=== PATIENT | female | born 1995 | race American Indian/Alaskan Native ===

== ENCOUNTER 2019-09-07 20:06 | Emergency (ER) | payer SELFPAY ==
[2019-09-07 21:17] LABS: Bilirubin,Urine NEG (Negative); Blood,Urine SM (Negative); Color,Urine Yellow (Yellow); HCG Qualitative,Urine Positive (Negative); Mucus,Urine 1+ /HPF; Protein,Urine <15 mg/dL mg/dL (Negative)
--- NOTE | 2019-09-08 00:01 | Emergency Department Report ---
ED General Adult HPI - General Chief complaint: Headache Stated complaint: UTI, HEADACHES FOR TWO WEEKS Time Seen by Provider: 09/07/19 22:42 Source: patient Mode of arrival: Ambulatory Limitations: No Limitations - History of Present Illness Initial comments: Patient is a 24-year-old female presents the emergency room with complaints of vaginal discharge that began a few days ago. pt has associated frequent urination. she denies any vaginal itching, vaginal burning, dysuria. Patient states that she has also had a headache for 2 weeks and has been taking Excedrin and Goody powder. She has also had a toothache for 2 days. she denies any vomiting, diarrhea, fever, vision changes, numbness and numbness, weakness, facial edema, chills. She states her last mental cycle was August 07. She denies any past medical history or allergies medications. she states that she recently found out she was by urine preg test and states that she has lower abdominal cramping. she denies any vaginal bleeding. has not seen an PSYCHIATRIC TECHNICIAN ASSISTANT - Related Data Previous Rx's Medication Instructions Recorded Last Taken Type Acetaminophen [Acetaminophen 8 650 mg PO Q8HR PRN #14 tablet.er 09/08/19 Unknown Rx Hour] metroNIDAZOLE [Flagyl] 500 mg PO BID 7 Days #14 tab 09/08/19 Unknown Rx Allergies Allergy/AdvReac Type Severity Reaction Status Date / Time No Known Allergies Allergy Unverified 09/07/19 20:48 ED Review of Systems ROS: Stated complaint: UTI, HEADACHES FOR TWO WEEKS Other details as noted in HPI Comment: All other systems reviewed and negative ED Past Medical Hx - Past Medical History Previous Medical History?: Yes Hx Headaches / Migraines: Yes Additional medical history: Scoliosis - Surgical History Past Surgical History?: No - Social History Smoking Status: Never Smoker Substance Use Type: None - Medications Home Medications: Home Medications Medication Instructions Recorded Confirmed Last Taken Type Acetaminophen [Acetaminophen 8 650 mg PO Q8HR PRN #14 tablet.er 09/08/19 Unknown Rx Hour] metroNIDAZOLE [Flagyl] 500 mg PO BID 7 Days #14 tab 09/08/19 Unknown Rx ED Physical Exam - General Limitations: No Limitations General appearance: alert, in no apparent distress - Head Head exam: Present: atraumatic, normocephalic - Eye Eye exam: Present: normal appearance - ENT ENT exam: Present: normal orophraynx, mucous membranes moist, other (no signs of dental abscess, no signs of facial cellulitis) - Respiratory Respiratory exam: Present: normal lung sounds bilaterally. Absent: respiratory distress, wheezes, rales, rhonchi, stridor, chest wall tenderness, accessory muscle use, decreased breath sounds, prolonged expiratory - Cardiovascular Cardiovascular Exam: Present: regular rate, normal rhythm, normal heart sounds. Absent: systolic murmur, diastolic murmur, rubs, gallop - GI/Abdominal GI/Abdominal exam: Present: soft, normal bowel sounds. Absent: distended, tenderness, guarding, rebound, rigid - External exam: Present: normal external exam. Absent: erythema, swelling, lesions, lacerations, ecchymosis, bleeding Speculum exam: Present: vaginal discharge (white), cervical discharge (white), other (eyedotter: janki, RN. cervical os is closed). Absent: erythema, vaginal bleeding, foreign body, tissue, laceration Bi-manual exam: Present: normal bi-manual exam. Absent: cervical motion tendernes, adnexal tenderness, adnexal mass - Neurological Exam Neurological exam: Present: alert, oriented X3, CN II-XII intact, normal gait. Absent: motor sensory deficit - Psychiatric Psychiatric exam: Present: normal affect, normal mood - Skin Skin exam: Present: warm, dry, intact ED Course Vital Signs 09/07/19 09/08/19 09/08/19 20:45 02:13 02:14 Temperature 98.5 F Pulse Rate 78 72 Respiratory 14 16 16 Rate Blood Pressure 132/84 Blood Pressure 127/84 [Left] O2 Sat by Pulse 100 Oximetry ED Medical Decision Making - Radiology Data Radiology results: report reviewed US OB transvaginal, US OB <= 14 weeks fetus INDICATION / CLINICAL INFORMATION: , abd pain. COMPARISON: None available. FINDINGS: Uterus measures 9.1 cm. A 1 cm gestational sac is identified with a yolk sac but no pole. The ovaries are normal. No free fluid collections are seen in the pelvis. IMPRESSION: 1. 5 week 5 day intrauterine gestation. Signer Name: Akhil Owen MD Signed: 09/08/2019 1:24 AM Workstation Name: [id number] Transcribed By: GA Dictated By: Akhil Owen MD Electronically Authenticated By: Akhil Owen MD Signed Date/Time: 09/08/19 0124 - Medical Decision Making Patient is a 24-year-old female presents the emergency room with complaints of vaginal discharge that began a few days ago. pt has associated frequent urination. she denies any vaginal itching, vaginal burning, dysuria. Patient states that she has also had a headache for 2 weeks and has been taking Excedrin and Goody powder. She has also had a toothache for 2 days. she denies any vomiting, diarrhea, fever, vision changes, numbness and numbness, weakness, facial edema, chills. She states her last mental cycle was August 07. She denies any past medical history or allergies medications. she states that she recently found out she was by urine preg test and states that she has lower abdominal cramping. she denies any vaginal bleeding. has not seen an PSYCHIATRIC TECHNICIAN ASSISTANT. VSS. no abd tenderness on exam, no signs of dental abscess/facial cellulitis, no focal neuro deficits. pt given tylenol and CARRILLO improved. urine was positive. UA without evidence of UTI. hcg quant is 3498. wet prep shows trichomonas and BV. G/C swab sent. US shows: 1. 5 week 5 day intrauterine gestation. pt given prescription for tylenol and flagyl. discussed with pt that only tylenol is safe during first trimester. advised pt to please take medication as prescribed. Please increase your water intake and begin to take a vitamin [id number]. please follow-up with an PSYCHIATRIC TECHNICIAN ASSISTANT and a dentist in the next 2-3 days. 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 please be seen by the health department or PSYCHIATRIC TECHNICIAN ASSISTANT for full STD panel. abstain from sexual intercourse for 10 days. have partner tested and treated. return to the emergency room for any new or worsening symptoms. - Differential Diagnosis UTI, STD, yeast, BV, vaginitis Critical care attestation.: If time is entered above; I have spent that time in minutes in the direct care of this critically ill patient, excluding procedure time. ED Disposition Clinical Impression: Bacterial vaginosis, Trichomonas vaginalis infection, Toothache Qualifiers: Weeks of gestation: less than 8 weeks Qualified Code(s): Z3A.01 - Less than 8 weeks gestation of Headache Qualifiers: Headache type: unspecified Headache chronicity pattern: acute headache Intractability: not intractable Qualified Code(s): R51 - Headache Disposition: DC-01 TO HOME OR SELFCARE Is pt being admited?: No Does the pt Need Aspirin: No Condition: Stable Instructions: (ED), Bacterial Vaginosis (ED), Safe Sex (ED), Trichomoniasis (ED), Acute Headache (ED), Toothache (ED) Additional Instructions: Please take medication as prescribed. Please increase your water intake and begin to take a vitamin [id number]. please follow-up with an PSYCHIATRIC TECHNICIAN ASSISTANT and a dentist in the next 2-3 days. 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 please be seen by the health department or PSYCHIATRIC TECHNICIAN ASSISTANT for full STD panel. abstain from sexual intercourse for 10 days. have partner tested and treated. return to the emergency room for any new or worsening symptoms. Prescriptions: Acetaminophen [Acetaminophen 8 Hour] 650 mg PO Q8HR PRN #14 tablet.er PRN Reason: pain metroNIDAZOLE [Flagyl] 500 mg PO BID 7 Days #14 tab Referrals: DIONICIO CHISHOLM MD [Staff Physician] - 2-3 Days [facility] [Outside] - 2-3 Days Forms: STI Treatment and Prevention Time of Disposition: 01:32 Print Language: ITALIAN
[2019-09-08] MEDS: TYLENOL PO ONE (00:25)
--- NOTE | 2019-09-08 01:29 | Ultrasound Report ---
US OB transvaginal, US OB <= 14 weeks fetus INDICATION / CLINICAL INFORMATION: , abd pain. COMPARISON: None available. FINDINGS: Uterus measures 9.1 cm. A 1 cm gestational sac is identified with a yolk sac but no pole. The ovaries are normal. No free fluid collections are seen in the pelvis. IMPRESSION: 1. 5 week 5 day intrauterine gestation. Signer Name: Akhil Owen MD Signed: 09/08/2019 1:24 AM Workstation Name: [facility]
[2019-09-08 02:15] VITALS: BP 127/84
== END 2019-09-08 02:15 | disposition home or self-care (01) ==
LOC: ED 20:06
DX: O98.311 Other infections with a predominantly sexual mode of transmission complicating pregnancy, first trimester (principal); A59.01 Trichomonal vulvovaginitis; O99.351 Diseases of the nervous system complicating pregnancy, first trimester; G43.909 Migraine, unspecified, not intractable, without status migrainosus; Z3A.08 8 weeks gestation of pregnancy
CPT/HCPCS: 36415; 76801; 76817; 81001; 81025; 84702; 87210; 87591

== ENCOUNTER 2019-10-05 08:49 | Emergency (ER) | payer MEDICAID, OTHER ==
[2019-10-05 10:34] LABS: Basophils % (Auto) 0.3 % (0.0-1.8); Eosinophils # (Auto) 0.1 K/mm3 (0.0-0.4); Eosinophils % (Auto) 1.3 % (0.0-4.3); Hematocrit 33.6 % (30.3-42.9); Hemoglobin 11.3 gm/dl (10.1-14.3); Lymphocytes # (Auto) 1.1 K/mm3 (1.2-5.4); Lymphocytes % (Auto) 18.2 % (13.4-35.0); Mean Corpuscular HGB Conc 34 % (30-34); Mean Corpuscular Volume 88 fl (79-97); Monocytes # (Auto) 0.4 K/mm3 (0.0-0.8); Monocytes % (Auto) 7.2 % (0.0-7.3); Platelet Count 320 K/mm3 (140-440); Red Blood Count 3.82 M/mm3 (3.65-5.03); Red Cell Distribution Width 13.5 % (13.2-15.2)
[2019-10-05 10:44] LABS: Bacteria,Urine 1+ /HPF (Negative); Bilirubin,Urine NEG (Negative); Blood,Urine MOD (Negative); Color,Urine Yellow (Yellow); Hyaline Casts,Urine 1 /LPF; Mucus,Urine 1+ /HPF; Protein,Urine <15 mg/dL mg/dL (Negative); Urobilinogen,Urine < 2.0 mg/dL (<2.0)
--- NOTE | 2019-10-05 10:46 | Emergency Department Report ---
ED Female HPI - General Chief complaint: Vaginal Bleeding Stated complaint: 8WKS /BLEEDING/COUGHING Time Seen by Provider: 10/05/19 09:21 Source: patient Mode of arrival: Ambulatory Limitations: No Limitations - History of Present Illness Initial comments: This is a 24-year-old 0-2 who presents at approximately 8 weeks gestation complaining of vaginal spotting that started worse in the past 4 days. Patient states her last menstrual period is 08/07/2019 which she is not sure. Patient states that she's been to Aide x 2 for test and follow-up. Patient has not been to ASSOCIATE ART DIRECTOR for this . Patient stated that initially last when she went to the bathroom and wiped she saw some dark red spotting. Patient states that today when she went to wipe she is brighter red,. Patient is not actively having any vaginal bleeding at the moment. She admits lower pelvic intermittent cramping, vomiting and nausea. MD Complaint: vaginal bleeding - Related Data Previous Rx's Medication Instructions Recorded Last Taken Type Acetaminophen [Acetaminophen 8 650 mg PO Q8HR PRN #14 tablet.er 09/08/19 Unknown Rx Hour] metroNIDAZOLE [Flagyl] 500 mg PO BID 7 Days #14 tab 09/08/19 Unknown Rx Doxylamine Succinate/Vit B6 2 each PO QHS #40 tablet. 10/05/19 Unknown Rx [Luigi Enamorado 10-10 mg Tablet] Allergies Allergy/AdvReac Type Severity Reaction Status Date / Time No Known Allergies Allergy Unverified 09/07/19 20:48 ED Review of Systems ROS: Stated complaint: 8WKS /BLEEDING/COUGHING Other details as noted in HPI Comment: All other systems reviewed and negative ED Past Medical Hx - Past Medical History Hx Headaches / Migraines: Yes Additional medical history: Scoliosis - Surgical History Past Surgical History?: No - Social History Smoking Status: Never Smoker Substance Use Type: None - Medications Home Medications: Home Medications Medication Instructions Recorded Confirmed Last Taken Type Acetaminophen [Acetaminophen 8 650 mg PO Q8HR PRN #14 tablet.er 09/08/19 Unknown Rx Hour] metroNIDAZOLE [Flagyl] 500 mg PO BID 7 Days #14 tab 09/08/19 Unknown Rx Doxylamine Succinate/Vit B6 2 each PO QHS #40 tablet. 10/05/19 Unknown Rx Harjeet Enamorado 10-10 mg Tablet] ED Physical Exam - General Limitations: No Limitations General appearance: alert, in no apparent distress - Head Head exam: Present: atraumatic, normocephalic - Eye Eye exam: Present: normal appearance - ENT ENT exam: Present: mucous membranes moist - Neck Neck exam: Present: normal inspection - Respiratory Respiratory exam: Present: normal lung sounds bilaterally. Absent: respiratory distress - Cardiovascular Cardiovascular Exam: Present: regular rate, normal rhythm. Absent: systolic murmur, diastolic murmur, rubs, gallop - GI/Abdominal GI/Abdominal exam: Present: soft, normal bowel sounds - Extremities Exam Extremities exam: Present: normal inspection - Back Exam Back exam: Present: normal inspection - Neurological Exam Neurological exam: Present: alert, oriented X3 - Psychiatric Psychiatric exam: Present: normal affect, normal mood - Skin Skin exam: Present: warm, dry, intact, normal color. Absent: rash ED Course Vital Signs 10/05/19 08:54 Temperature 97.9 F Pulse Rate 86 Respiratory 15 Rate Blood Pressure 117/79 O2 Sat by Pulse 100 Oximetry ED Medical Decision Making - Lab Data Result diagrams: 10/05/19 10:16 - Radiology Data Radiology results: report reviewed, image reviewed ULTRASOUND OB LESS THAN 14 WEEKS FETUS ULTRASOUND OB TRANSVAGINAL HISTORY: Vaginal bleeding, pelvic pain during COMPARISON: 09/07/2019 TECHNIQUE: Routine transabdominal OB ultrasound performed. FINDINGS: Uterus: The uterus is mildly enlarged measuring 12.3 x 7.3 x 11.8 cm. Gestational Sac: Well-defined oval shape and intrauterine in location. Yolk Sac: Normal in appearance. Fetus/Embryo: [place]-rump length of 2.6 cm, corresponding to an estimated gestational age of 9 weeks 3 days. Embryonic/ anatomy is too small for evaluation. Embryonic/ cardiac activity: 182bpm Placenta: Too small for evaluation. Amniotic fluid volume: Subjectively appropriate for gestational age. Ovaries: The right ovary is normal in size and appearance with normal blood flow, measuring 3.7 x 2.2 x 3.9 cm. The left ovary is normal in size and appearance with normal blood flow, measuring 3.5 x 2.5 x 2.7 cm. Hypoechoic space-occupying mass in the right ovary with peripheral vascularity is most likely the corpus luteum. Additional findings: None. IMPRESSION Viable, single intrauterine as described. No acute abnormality is detected. Signer Name: Macario Galvan Jr, MD Signed: 10/05/2019 10:55 AM Workstation Name: [id number] Transcribed By: TTR Dictated By: MACARIO GALVAN JR, MD Electronically Authenticated By: MACARIO GALVAN JR, MD Signed Date/Time: 10/05/19 1055 - Medical Decision Making 24-year-old female presents to ED with vaginal spotting in ED course: Pt received ultra sound, CBC, urinalysis, test and quantitative ED All labs within normal limits, quantitative elevated matching gestation age Ultrasound shows single gestation at 9 weeks with 182 bpm respectively. See reported above Vital signs normalized patient is in no acute distress. I discussed with the patient to follow-up with her ASSOCIATE ART DIRECTOR. I discussed all labs and ultrasound findings with the patient. I discussed with the patient that he if bleeding worsens or new symptoms develop to return to ED immediately Critical care attestation.: If time is entered above; I have spent that time in minutes in the direct care of this critically ill patient, excluding procedure time. ED Disposition Clinical Impression: Vaginal bleeding during Disposition: DC-01 TO HOME OR SELFCARE Is pt being admited?: No Does the pt Need Aspirin: No Condition: Stable Instructions: Threatened Miscarriage (ED), (ED) Additional Instructions: Make sure to follow up with the ASSOCIATE ART DIRECTOR as discussed. Take all your medications as you've been prescribed. If you have any worsening symptoms or develop new symptoms please return to ED immediately. Prescriptions: Doxylamine Succinate/Vit B6 [Luigi Enamorado 10-10 mg Tablet] 2 each PO QHS #40 tablet. Referrals: [facility] [Provider Group] - 3-5 Days [facility] [Provider Group] - 3-5 Days Forms: Work/School Release Form(ED) Time of Disposition: 11:29
--- NOTE | 2019-10-05 10:59 | Ultrasound Report ---
ULTRASOUND OB LESS THAN 14 WEEKS FETUS ULTRASOUND OB TRANSVAGINAL HISTORY: Vaginal bleeding, pelvic pain during COMPARISON: 09/07/2019 TECHNIQUE: Routine transabdominal OB ultrasound performed. FINDINGS: Uterus: The uterus is mildly enlarged measuring 12.3 x 7.3 x 11.8 cm. Gestational Sac: Well-defined oval shape and intrauterine in location. Yolk Sac: Normal in appearance. Fetus/Embryo: [place]-rump length of 2.6 cm, corresponding to an estimated gestational age of 9 weeks 3 days. Embryonic/ anatomy is too small for evaluation. Embryonic/ cardiac activity: 182bpm Placenta: Too small for evaluation. Amniotic fluid volume: Subjectively appropriate for gestational age. Ovaries: The right ovary is normal in size and appearance with normal blood flow, measuring 3.7 x 2. 2 x 3.9 cm. The left ovary is normal in size and appearance with normal blood flow, measuring 3.5 x 2.5 x 2.7 cm. Hypoechoic space-occupying mass in the right ovary with peripheral vascularity is most likely the corpus luteum. Additional findings: None. IMPRESSION Viable, single intrauterine as described. No acute abnormality is detected. Signer Name: Macario De León Jr, MD Signed: 10/05/2019 10:55 AM Workstation Name: [id number]
[2019-10-05 12:03] VITALS: BP 118/80
== END 2019-10-05 11:52 | disposition home or self-care (01) ==
LOC: ED 08:49
DX: O20.9 Hemorrhage in early pregnancy, unspecified (principal); Z3A.08 8 weeks gestation of pregnancy
CPT/HCPCS: 36415; 76801; 76817; 81001; 84702; 85025; 86900; 86901

== ENCOUNTER 2020-04-20 21:08 | Outpatient (CLI) | payer MEDICAID ==
[2020-04-20 21:55] VITALS: BP 111/72
--- NOTE | 2020-04-20 23:16 | Ultrasound Report ---
ULTRASOUND BIOPHYSICAL PROFILE INDICATION / CLINICAL INFORMATION: r/o ROM, decreased movement. COMPARISON: None available. FINDINGS: BREATHING MOVEMENT = 2 GROSS BODY MOVEMENT = 2 TONE = 2 QUALITATIVE AMNIOTIC FLUID VOLUME = 2 TOTAL BIOPHYSICAL SCORE = 06/29 AMNIOTIC FLUID INDEX (cm) = 12.7 PRESENTATION: Cephalic. HEART RATE (beats per minute): 139 IMPRESSION: 1. biophysical profile = 06/29 Signer Name: Elliott Michaels MD Signed: 04/20/2020 11:11 PM Workstation Name: [id number]
== END 2020-04-20 22:42 | disposition home or self-care (01) ==
LOC: TRG 21:08 → APU 21:10 → TRG 22:42
PROVIDERS: ATTEND Obstetrics & Gynecology
DX: O42.92 Full-term premature rupture of membranes, unspecified as to length of time between rupture and onset of labor (principal); Z3A.38 38 weeks gestation of pregnancy
CPT/HCPCS: 59025; 76815; 76819

== ENCOUNTER 2020-05-02 08:28 | Inpatient (IN) | payer MEDICAID ==
[2020-05-02] MEDS ORDERED: ONDANSETRON 4 MG/2 ML INJ IV PRN ×2 (10:25→17:05)
[2020-05-02] MEDS ORDERED: BUTORPHANOL 2 MG/1 ML INJ IV PRN ×2 (10:25)
[2020-05-02] MEDS ORDERED: TERBUTALINE 1 MG/1 ML INJ IVP PRN (10:25)
[2020-05-02] MEDS ORDERED: PROMETHAZINE 25 MG TAB PO PRN ×2 (10:25→17:05)
[2020-05-02] MEDS ORDERED: ePHEDrine SULFATE 50 MG/1 ML INJ IV PRN (10:25)
[2020-05-02] MEDS ORDERED: NALOXONE 0.4 MG/1 ML INJ IV PRN (10:25)
[2020-05-02] MEDS ORDERED: TERBUTALINE 1 MG/1 ML INJ SUB-Q PRN (10:25)
[2020-05-02] MEDS ORDERED: MINERAL OIL 30 ML ORAL LIQD PO PRN (10:25)
[2020-05-02] MEDS ORDERED: fentaNYL 100 MCG/2 ML INJ IV PRN (10:25)
[2020-05-02] MEDS ORDERED: LIDOCAINE (2%) 20 MG/1 ML VIAL 20 ML MDV INFILTRATI ONE (10:25)
[2020-05-02] MEDS ORDERED: ACETAMINOPHEN 500 MG TAB PO PRN (10:29)
[2020-05-02 10:39] LABS: Hematocrit 31.2 % (30.3-42.9); Hemoglobin 10.6 gm/dl (10.1-14.3); Mean Corpuscular HGB Conc 34 % (30-34); Mean Corpuscular Volume 88 fl (79-97); Platelet Count 239 K/mm3 (140-440); Red Blood Count 3.54 M/mm3 (3.65-5.03); Red Cell Distribution Width 13.2 % (13.2-15.2)
[2020-05-02] MEDS ORDERED: LACTATED RINGERS 1,000 ML IV SCH (11:00)
[2020-05-02] MEDS ORDERED: OXYTOCIN DRIP 30 UNITS/500 ML BAG IV SCH (11:00)
--- NOTE | 2020-05-02 12:53 | History and Physical Report ---
History of Present Illness Date of examination: 05/02/20 Date of admission: 05/02/20 08:28 Chief complaint: Here for induction History of present illness: Pt is a 24 yo at 39w5d EGA by LMP c/w 17wk US who presents for induction of labor secondary to gestational diabetes, lifestyle controlled. She reports positive movement and denies LOF, contractions, or vaginal bleeding. She has received care with [facility]. Her has been complicated by GDM and GERD. The patients plans to have her sister adopt this baby. She is GBS negative. Past History Past Medical History: other (scoliosis) Past Surgical History: D&C PRICE ANALYST History: trichomonas (remote from ) Family/Genetic History: heart disease, hypertension Social history: no significant social history - Obstetrical History Expected Date of Delivery: 05/04/20 Actual Gestation: 39 Week(s) 5 Day(s) : 5 Para: 2 Induced : 2 Number of Living Children: 2 Medications and Allergies Allergies Allergy/AdvReac Type Severity Reaction Status Date / Time No Known Allergies Allergy Verified 05/02/20 09:03 Home Medications Medication Instructions Recorded Confirmed Last Taken Type Acetaminophen [Acetaminophen 8 1,000 mg PO Q8HR PRN 05/02/20 05/02/20 1 Week Ago History Hour] ~04/25/20 Omeprazole 1 tab PO DAILY 05/02/20 05/02/20 2 Weeks Ago History ~04/18/20 Vitamin 1 tab PO DAILY 05/02/20 05/02/20 5 Days Ago History ~04/27/20 Active Meds: Active Medications Acetaminophen (Tylenol) 1,000 mg PO Q6H PRN PRN Reason: Pain, Mild (1-3) Last Admin: 05/02/20 11:38 Dose: 1,000 mg Documented by: Butorphanol Tartrate (Stadol) 1 mg IV Q2H PRN PRN Reason: Pain, Moderate(4-6) LABOR PAIN Butorphanol Tartrate (Stadol) 2 mg IV Q2H PRN PRN Reason: Pain , Severe (7-10) Ephedrine Sulfate (Ephedrine Sulfate) 10 mg IV Q2M PRN PRN Reason: Hypotension Fentanyl (Sublimaze) 100 mcg IV Q2H PRN PRN Reason: Pain,Severe (7-10) LABOR PAIN Oxytocin/Sodium Chloride (Pitocin/Ns 20 Unit/1000ml Drip) 20 units in 1,000 mls @ 125 mls/hr IV DIRECT SIA Oxytocin/Sodium Chloride (Pitocin/Ns 30 Unit/500ml) 30 units in 500 mls @ 2 mls/hr IV TITR SIA; Protocol Last Titration: 05/02/20 12:21 Dose: 4 ml/hr, 4 mls/hr Documented by: Lactated Ringer's (Lactated Ringers) 1,000 mls @ 125 mls/hr IV DIRECT SIA Last Admin: 05/02/20 11:37 Dose: 125 mls/hr Documented by: Mineral Oil (Mineral Oil) 30 ml PO QHS PRN PRN Reason: Constipation Naloxone HCl (Naloxone) 0.1 mg IV Q2MIN PRN PRN Reason: Res Rate </= 8 or 02 SAT < 92% Ondansetron HCl (Zofran) 4 mg IV Q8H PRN PRN Reason: Nausea And Vomiting Promethazine HCl (Phenergan) 25 mg PO Q6H PRN PRN Reason: Nausea And Vomiting Terbutaline Sulfate (Brethine) 0.25 mg SUB-Q ONCE PRN PRN Reason: Hyperstimulation/Hypertonicity Terbutaline Sulfate (Brethine) 0.25 mg IVP ONCE PRN PRN Reason: Hyperstimulation/Hypertonicity Review of Systems All systems: negative Genitourinary: no vaginal bleeding, no leakage of fluid, no contractions - Vital Signs Vital signs: Vital Signs Pulse Pulse Ox 99 H 99 05/02/20 09:00 05/02/20 09:00 Temp Pulse Resp BP Pulse Ox 98.4 F 75 20 105/65 100 05/02/20 09:02 05/02/20 12:46 05/02/20 11:38 05/02/20 12:38 05/02/20 12:46 - Physical Exam Lungs: Positive: Normal air movement Abdomen: Positive: soft. Negative: distention Uterus: Positive: enlarged (gravid) - Obstetrical FHR: category 1 Cervical Dilatation: 4 Cervical Effacement Percentage: 50 station: -3 Uterine Contraction Pattern: Irregular Results Result Diagrams: 05/02/20 09:55 Abnormal lab results 05/02/20 Range/Units 09:55 RBC 3.54 L (3.65-5.03) M/mm3 All other labs normal. Assessment and Plan A: 24 yo at 39w5d EGA Gestational diabetes, lifestyle controlled GBS negative Cervix favorable for induction Plans for adoption P: Admit for IOL- Pitocin AROM clear fluid at 1245 Blood glucose checks q6hr Case management consult Anticipate
[2020-05-02] MEDS: OXYTOCIN 20 UNIT/1000ML DRIP 20 UNITS/1,000 ML BAG IV SCH ×2 (16:47→17:40)
--- NOTE | 2020-05-02 17:04 | Procedure Note ---
OB Delivery Note - Delivery Date of Delivery: 05/02/20 Surgeon: GEOVANNY MONROE ([facility]) Estimated blood loss: other (400cc) - Vaginal Delivery presentation: vertex Delivery position: OA Intrapartum events: PROM->1hr before delivery Delivery induction: oxytocin Delivery augmentation: rupture of membranes Delivery monitor: external FHT, external uterine Route of delivery: Delivery placenta: spontaneous Delivery cord: 3 umbilical vessels Episiotomy: none Delivery laceration: other (vaginal side wall abrasions) Anesthesia: none Delivery comments: Excellent maternal effort progressed to of viable female infant. Head delivered OA, restituted LOT, shoulders followed with gentle traction. to maternal abdomen, apgars 8/9. Placenta delivered spontaneously and intact. Cord clamped and cut, 3vc, to warmer for peds evaluation. Pitocin infusing. Vaginal sweep revealed vaginal sidewall abrasions, hemostatic, not repaired. Brisk bleeding resolved with manual clot removal from lower uterine segment. Patient and bonding well, plans to breast feed and have sister adopt . - A at 1 minute: 8 at 5 minutes: 9 Gender: Female
[2020-05-02] MEDS ORDERED: MAGNESIUM HYDROXIDE (MOM) ORAL LIQD UDC PO PRN (17:05)
[2020-05-02] MEDS ORDERED: LANOLIN/ZINC/DIMETHICONE (LANSINOH) 7 GM TP PRN (17:05)
[2020-05-02] MEDS ORDERED: PROMETHAZINE 25 MG RECT SUPP PR PRN (17:05)
[2020-05-02] MEDS ORDERED: WITCH HAZEL/ GLYCERIN PAD TP PRN (17:05)
[2020-05-02] MEDS ORDERED: diphenhydrAMINE 25 MG CAP PO PRN (17:05)
[2020-05-02] MEDS ORDERED: ACETAMINOPHEN 325 MG TAB PO PRN (17:05)
[2020-05-02] MEDS ORDERED: ONDANSETRON 4 MG/2 ML INJ ONE (18:39)
[2020-05-02] MEDS ORDERED: KETOROLAC 30 MG/1 ML INJ ONE (18:52)
[2020-05-02] MEDS: IBUPROFEN 600 MG TAB PO SCH (21:01)
[2020-05-03 05:18] LABS: Hemoglobin 9.9 gm/dl (10.1-14.3)
[2020-05-03] MEDS: IBUPROFEN 600 MG TAB PO SCH (07:58)
--- NOTE | 2020-05-03 08:25 | Progress Note ---
Assessment and Plan - Patient Problems (1) Vaginal delivery Current Visit: Yes Status: Acute Plan to address problem: Patient doing well Discharge home Subjective - Subjective Date of service: 05/03/20 Interval history: Patient reports having some mild cramping. She is tolerating regular diet without complication. Patient reports: appetite normal, voiding normally, pain well controlled : doing well Objective - Vital Signs Latest vital signs: Vital Signs Temp Pulse Resp BP BP Pulse Ox 05/03/20 07:58 22 05/03/20 04:00 98.2 F 70 18 112/69 05/03/20 02:51 98.1 F 76 18 113/77 100 05/02/20 22:53 99.3 F 83 18 120/78 99 05/02/20 18:45 98.2 F 71 16 127/84 98 05/02/20 17:58 86 99 05/02/20 17:53 91 H 99 05/02/20 17:48 85 99 05/02/20 17:43 86 100 05/02/20 17:38 82 98 05/02/20 17:37 87 127/76 05/02/20 17:34 66 89 05/02/20 17:33 87 99 05/02/20 17:28 82 100 05/02/20 17:23 80 100 05/02/20 17:18 78 99 05/02/20 17:13 80 99 05/02/20 17:08 85 99 05/02/20 17:06 97.8 F 20 98 05/02/20 17:03 99 H 100 05/02/20 16:58 79 118/72 98 05/02/20 16:53 85 99 05/02/20 16:48 82 98 05/02/20 16:43 82 97 05/02/20 16:38 85 99 05/02/20 16:33 79 92 05/02/20 16:28 71 100 05/02/20 16:23 78 100 05/02/20 16:18 79 99 05/02/20 16:17 63 74 L 05/02/20 16:13 83 92 05/02/20 16:12 58 L 74 L 05/02/20 16:08 74 89 05/02/20 16:06 66 68 L 05/02/20 16:03 91 H 99 05/02/20 15:58 78 98 05/02/20 15:53 79 98 05/02/20 15:48 76 99 05/02/20 15:43 82 98 05/02/20 15:38 80 97 05/02/20 15:37 74 121/79 05/02/20 15:33 75 97 05/02/20 15:28 78 98 05/02/20 15:23 87 97 05/02/20 15:18 75 98 05/02/20 15:13 88 97 05/02/20 15:08 75 97 05/02/20 15:03 80 97 05/02/20 14:58 80 96 05/02/20 14:53 81 98 05/02/20 14:48 79 96 05/02/20 14:43 81 96 05/02/20 14:38 87 97 05/02/20 14:37 75 124/80 05/02/20 14:33 80 96 05/02/20 14:28 83 98 05/02/20 14:23 80 99 05/02/20 14:18 78 98 05/02/20 14:16 16 05/02/20 14:13 76 99 05/02/20 14:08 82 100 05/02/20 13:45 66 85 05/02/20 13:43 85 100 05/02/20 13:38 85 98 05/02/20 13:37 82 108/67 05/02/20 13:33 83 99 05/02/20 13:28 85 100 05/02/20 13:23 88 100 05/02/20 13:18 79 97 05/02/20 13:13 91 H 98 05/02/20 13:08 80 99 05/02/20 13:03 76 100 05/02/20 12:58 84 99 05/02/20 12:53 76 100 05/02/20 12:46 75 100 05/02/20 12:41 88 100 05/02/20 12:38 86 105/65 05/02/20 12:36 90 99 05/02/20 12:31 92 H 100 05/02/20 12:26 87 99 05/02/20 12:21 85 99 05/02/20 12:16 89 99 05/02/20 12:11 89 99 05/02/20 12:06 90 99 05/02/20 12:01 84 99 05/02/20 11:56 91 H 100 05/02/20 11:51 86 99 05/02/20 11:46 84 99 05/02/20 11:41 91 H 99 05/02/20 11:38 20 05/02/20 11:36 94 H 117/78 99 05/02/20 11:31 90 98 05/02/20 11:26 96 H 98 05/02/20 11:21 102 H 98 05/02/20 11:16 100 H 98 05/02/20 11:11 88 98 05/02/20 11:06 94 H 98 05/02/20 11:01 93 H 98 05/02/20 10:56 89 98 05/02/20 10:51 91 H 98 05/02/20 10:46 84 99 05/02/20 10:41 94 H 98 05/02/20 10:36 88 100 05/02/20 10:31 91 H 99 05/02/20 10:26 88 99 05/02/20 10:21 99 H 98 05/02/20 10:16 92 H 100 05/02/20 10:11 90 98 05/02/20 10:06 91 H 98 05/02/20 10:01 91 H 99 05/02/20 09:45 102 H 98 05/02/20 09:40 96 H 98 05/02/20 09:35 92 H 99 05/02/20 09:30 97 H 99 05/02/20 09:25 94 H 99 05/02/20 09:20 98 H 99 05/02/20 09:15 91 H 99 05/02/20 09:10 98 H 99 05/02/20 09:05 96 H 99 05/02/20 09:02 98.4 F 20 99 05/02/20 09:01 98 H 120/82 05/02/20 09:00 99 H 99 Intake and Output 05/02/20 05/03/20 05/03/20 22:59 06:59 14:59 Intake Total 882.45 600 Output Total 900 1800 Balance -17.55 -1200 Intake: IV 882.45 PITOCin/NS 20 UNIT/1000ML 882.45 DRIP 20 units In 1,000 ml @ 125 mls/hr IV DIRECT SIA Rx#:[id number] Intake, Free Water 600 Output: Urine 900 1800 Indwelling Catheter 500 Void 400 1800 Other: Total, Output Amount 400 900 Estimated Blood Loss 400 - Exam Uterus: Present: normal, firm - Labs Labs: Abnormal lab results 05/02/20 05/03/20 05/03/20 Range/Units 09:55 00:01 04:08 RBC 3.54 L (3.65-5.03) M/mm3 Hgb 9.9 L (10.1-14.3) gm/dl Hct 29.0 L (30.3-42.9) % POC Glucose 114 H (70-105)
--- NOTE | 2020-05-03 08:26 | Discharge Summary ---
Providers - Providers Date of Admission: 05/02/20 08:28 Date of discharge: 05/03/20 Attending physician: SPENCER NORTH 05/02/20 12:04 Consult to Case Management [CONS] Routine Services Needed at Discharge: Predictive Maintenance Technician Notified:: Case management Additional Physician Instructions: Pt plans on adoption Primary care physician: [employer] Hospitalization Reason for admission: induction of labor Delivery: Discharge diagnosis: IUP at term delivered Hospital course: Patient admitted for induction of labor secondary to gestational diabetes. The patient had a successful vaginal delivery. Her course was uneventful. Condition at discharge: Good Disposition: DC-01 TO HOME OR SELFCARE - Discharge Diagnoses (1) Vaginal delivery Status: Acute Plan - Discharge Medications Prescriptions: Ferrous Sulfate [Feosol 325 MG tab] 325 mg PO BID #60 tablet Ibuprofen [Motrin] 600 mg PO Q6H PRN #60 tablet PRN Reason: Pain HYDROcodone/APAP 5-325 [[place] 5/325] 1 each PO Q6HR PRN #20 tablet PRN Reason: Pain - Provider Discharge Summary Activity: no sex for 6 weeks, no heavy lifting 4 weeks, no strenuous exercise Diet: routine Instructions: routine Additional instructions: [] Smoking cessation referral if applicable(refer to patient education folder for contact #) [] Refer to [facility] Booklet Call your doctor immediately for: * Fever > 100.5 * Heavy vaginal bleeding ( >1 pad per hour) * Severe persistent headache * Shortness of breath * Reddened, hot, painful area to leg or breast * Schedule visit in 4 weeks - Follow up plan Forms: [facility] Discharge Summary
[2020-05-04] MEDS ORDERED: DIPHtheria,PERTUSSIS(ACELL),TETANUS VACCINE/PF 0.5 ML VIAL IM ONE ×2 (00:36→06:00)
[2020-05-04] MEDS: IBUPROFEN 600 MG TAB PO SCH (01:12)
[2020-05-04 17:24] VITALS: BP 121/77
== END 2020-05-04 16:31 | disposition home or self-care (01) | DRG 775 ==
LOC: OBSVTOIN 08:28 → LD 08:28 → OB 18:26
PROVIDERS: ADMIT Obstetrics & Gynecology; ATTEND Obstetrics & Gynecology
PROC: 10E0XZZ Delivery of Products of Conception, External Approach (ICD-10-PCS; principal; 2020-05-02)
PROC: 3E033VJ Introduction of Other Hormone into Peripheral Vein, Percutaneous Approach (ICD-10-PCS; 2020-05-02)
PROC: 10907ZC Drainage of Amniotic Fluid, Therapeutic from Products of Conception, Via Natural or Artificial Opening (ICD-10-PCS; 2020-05-02)
DX: O24.429 Gestational diabetes mellitus in childbirth, unspecified control (principal); Z3A.39 39 weeks gestation of pregnancy; Z37.0 Single live birth; O99.62 Diseases of the digestive system complicating childbirth; K21.9 Gastro-esophageal reflux disease without esophagitis; O71.89 Other specified obstetric trauma
CPT/HCPCS: 36415; 82962; 85014; 85018; 85027; 86850; 86900; 86901; 90471; 90715; G0378; J0595; J1885; J2405; J2590; J7120